=== PATIENT | female | born 1955 | race Caucasian/White ===

== ENCOUNTER → 2016-12-12 | Outpatient (CLI) | payer OTHER | LOC: FIMAGING 13:37 | PROVIDERS: ATTEND Surgery | DX: Z12.31 Encounter for screening mammogram for malignant neoplasm of breast (principal) | CPT/HCPCS: G0202 ==

== ENCOUNTER → 2017-02-03 | Outpatient (CLI) | payer OTHER | LOC: FIMAGING 13:47 | PROVIDERS: ATTEND Nurse Practitioner Women's Health | DX: Z13.820 Encounter for screening for osteoporosis (principal); Z82.62 Family history of osteoporosis ==

== ENCOUNTER 2017-02-22 05:41 | Observation (INO) | payer OTHER ==
[2017-02-22] MEDS ORDERED: PHENAZOPYRIDINE HCL 200 MG TAB PO ONE (05:50)
[2017-02-22] MEDS ORDERED: ceFAZolin 2 GM/DEXTROSE 100 ML IV ONE (05:50)
[2017-02-22] MEDS ORDERED: LIDOCAINE 1% 2 ML INJ ID PRN (05:57)
[2017-02-22] MEDS ORDERED: LR 1,000 ML IV ONE (05:57)
--- NOTE | 2017-02-22 06:19 | PDANEPAE ---
ANE History of Present Illness 61 yo female with bladder, vaginal prolapse. ANE Past Medical History Past Medical History: No URI/fever x2 weeks. - Cardiovascular History Hx Hypertension: No Hx Arrhythmias: No Hx Chest Pain: No Hx Coronary Artery / Peripheral Vascular Disease: No Hx CHF / Valvular Disease: No Hx Palpitations: No Cardiovascular History Comment: low B/P 102/60's, high cholesterol 2015 - Pulmonary History Hx COPD: No Hx Asthma/Reactive Airway Disease: No Hx Recent Upper Respiratory Infection: No Hx Oxygen in Use at Home: No Hx Sleep Apnea: Yes Sleep Apnea Screening Result - Last Documented: Positive Pulmonary History Comment: smoker. [place] w/CPAP - Neurologic History Hx Cerebrovascular Accident: No Hx Seizures: No Hx Dementia: No - Endocrine History Hx Diabetes: No Hypothyroid: No - Renal History Hx Renal Disorders: No - Liver History Hx Hepatic Disorders: No - Neurological & Psychiatric Hx Hx Neurological and Psychiatric Disorders: Yes Neurological / Psychiatric History Comment: "back and hip issues" - Cancer History Hx Cancer: Yes Cancer History Comment: basal cell . Melanoma R leg 2002. - Congenital Disorder History Hx Congenital Disorders: No - GI History GERD: mild Hx Gastrointestinal Disorders: No Gastrointestinal History Comment: occ Pepcid for nausea - Chronic Pain History Chronic Pain: No - Surgical History Prior Surgeries: supracervical hysterectomy-2007. bilat breast bx-2000. hysteroscopy w/D and C. T and A -child ANE Review of Systems Review of Systems: - Exercise capacity METS (RN): 4 METS - Systems Constitutional: Reports: no symptoms Gastrointestinal: Reports: nausea (frequent nausea, none now) Muscolosketal: Reports: back pain (lower back pain) ANE Patient History - Allergies Allergies/Adverse Reactions: erythromycin base Allergy (Verified 02/08/17 15:54) Other-Enter Comments - Home Medications Home medications: home medication list seen and reviewed Home Medications: Calcium Carbonate [Tums 500MG (*)] 500 mg PO HS 02/08/17 [Last Taken 02/08/17] Cholecalciferol Vit D3 [Vitamin D3 (*)] 4,000 units PO DAILY 02/08/17 [Last Taken 02/08/17] Cyanocobalamin (Vitamin B-12) [Vitamin B12] 2,500 mcg PO Q2D 02/08/17 [Last Taken 02/08/17] Estradiol 10 mcg VG MOFR 02/08/17 [Last Taken 02/17/17] Estradiol [Vivelle-Dot 0.05MG (*)] 1 ea TD MOFR 02/08/17 [Last Taken 02/20/17] Herbals/Supplements -Info Only 1 ea PO DAILY 02/08/17 [Last Taken 02/08/17] Polyethylene Glycol 3350 [Miralax 17 gm (*)] 17 gm PO DAILY 02/08/17 [Last Taken 02/19/17] - NPO status NPO Status: no food or drink >8 hours - Anes Hx Anes Hx: no prior problems - Smoking Hx Smoking Status: Heavy smoker - Alcohol Use Alcohol Use: Heavy (14 drinks/week) - Family Anes Hx Family Anes Hx: neg - N/A ANE Labs/Vital Signs - Vital Signs Vital Signs: reviewed preoperatively; see RN documention for details Height: 160.02 cm Weight: 65.771 kg ANE Physical Exam - Airway Neck exam: FROM Mallampati Score: Class 2 Mouth exam: normal dental/mouth exam - Pulmonary Pulmonary: clear to auscultation - Cardiovascular Cardiovascular: regular rate and rhythym - ASA Status ASA Status: II ANE Anesthesia Plan Anesthesia Plan: general endotracheal anesthesia
[2017-02-22] MEDS ORDERED: PROPOFOL/EMULSION 500 MG/50 ML BOTTLE IV ONE ×2 (07:16→07:39)
[2017-02-22] MEDS ORDERED: ROCURONIUM 100 MG/10 ML VIAL ONE (07:16)
[2017-02-22] MEDS ORDERED: LIDOCAINE 2% 5 ML SDV ONE (07:16)
[2017-02-22] MEDS ORDERED: DEXAMETHASONE 4 MG/ML VIAL ONE (07:16)
[2017-02-22] MEDS ORDERED: ONDANSETRON 4 MG/2 ML VIAL ONE (07:16)
[2017-02-22] MEDS ORDERED: BUPIVACAINE/EPI 0.5% 30 ML SDV ONE (07:17)
--- NOTE | 2017-02-22 07:19 | PDHPUP ---
History & Physical Update H&P update statement: This history and physical update is based on an assessment of the patient which was completed after admission or registration (within 24 hours), but prior to the surgery/procedure. H&P update: H&P reviewed & patient examined, no change in patient's condition since H&P completed
[2017-02-22] MEDS ORDERED: SUGAMMADEX SODIUM 200 MG/2 ML VIAL IVP ONE (09:15)
[2017-02-22] MEDS ORDERED: KETOROLAC 30 MG/1 ML SDV ONE (09:17)
[2017-02-22] MEDS ORDERED: OXYCODONE/APAP 5/325 TAB PO PRN (09:18)
[2017-02-22] MEDS ORDERED: PROMETHAZINE HCL 25 MG/ML INJ IVP PRN ×2 (09:18→09:57)
[2017-02-22] MEDS ORDERED: LR 500 ML IV PRN (09:18)
[2017-02-22] MEDS ORDERED: ACETAMINOPHEN 500 MG TAB PO PRN (09:18)
[2017-02-22] MEDS ORDERED: NALOXONE HCL 0.4 MG/ML INJ IVP PRN ×2 (09:18→09:24)
[2017-02-22] MEDS ORDERED: IPRATROPIUM/ALBUTEROL 3 ML DEYVIAL IH PRN (09:24)
[2017-02-22] MEDS ORDERED: HYDROmorphONE/DILAUDID 1 MG/ML INJ IVP PRN (09:57)
[2017-02-22] MEDS ORDERED: DIAZEPAM 10 MG/2 ML SYR IVP PRN (09:57)
[2017-02-22] MEDS ORDERED: ONDANSETRON 4 MG/2 ML VIAL IVP PRN (09:58)
[2017-02-22] MEDS ORDERED: LR 1,000 ML IV SCH (10:00)
--- NOTE | 2017-02-22 10:04 | POSTOPPROG ---
Post Op Note Date of Operation: 02/22/17 Surgeon: Luis Armando Ely Knitting Machine Mechanic: Yojana Hensley Anesthesiologist: Isabela Bauman Anesthesia: GET(General Endotracheal) Pre-op Diagnosis: vaginal prolapse, stress intontinence Post-op Diagnosis: same Procedure: robotic sacrocolpopexy, TOT sling, perineorraphy, cystoq Findings: uerters function at end of case Inf/Abcess present in the surg proc area at time of surgery?: No EBL: Minimal Complications: None
--- NOTE | 2017-02-22 10:06 | POSTANESTH ---
Post Anesthetic Evaluation Cardiovascular Status: Normal, Stable Respiratory Status: Normal, Stable Level of Consciousness/Mental Status: Can Participate in Eval, Moderately Sleepy Pain Control: Adequate, Prn Tx Ordered Nausea/Vomiting Control: Adequate, Prn Tx Ordered Complications Possibly Related to Anesthesia: None Noted
--- NOTE | 2017-02-22 11:09 | GOP ---
[f rep st] OPERATIVE REPORT DATE OF OPERATION: SURGEON: Luis Armando Ely MD EEG TECH: Lorrie Hensley CFA. ANESTHESIA: General. PREOPERATIVE DIAGNOSIS: 1. Cystocele. 2. Rectocele. 3. Vaginal vault prolapse. 4. Stress urinary incontinence. POSTOPERATIVE DIAGNOSIS: 1. Cystocele. 2. Rectocele. 3. Vaginal vault prolapse. 4. Stress urinary incontinence. PROCEDURE PERFORMED: 1. Robotic-assisted laparoscopic sacral colpopexy with mesh. 2. Repair of cystocele and rectocele. 3. Transobturator sling. 4. Perineorrhaphy. 5. Cystoscopy. FINDINGS: SPECIMENS: None. ESTIMATED BLOOD LOSS: Less than 20 mL. DESCRIPTION OF PROCEDURE: The patient was taken to the operating room. She was identified. General anesthesia was administered and found to be adequate. She was placed in the lithotomy position and prepared and draped in normal sterile fashion. A Campos catheter was placed in her bladder. A 1 cm infraumbilical incision was made with a scalpel. The Veress needle with the CO2 gas flowing w as advanced into the peritoneal cavity. The abdomen was then insufflated with carbon dioxide gas. T he 12 mm trocar followed by the laparoscope were then inserted. The upper abdomen was unremarkable. Two lateral ports placed on either side under direct visualization. She then was placed in [place] position, and the da Aspen robot docked on the left side. The instruments were then brought in to the abdominal cavity under direct visualization. The bowel adhesions were taken down to move the small and large bowel into the upper abdomen. The Co lpo-Probe was then placed in the vagina. The bladder was gently dissected off the anterior vaginal w all down to the level of bladder neck. The rectovaginal space was then entered, and the rectum disse cted off the posterior vaginal wall down to the level of the perineal body. Measurements were then o btained, and the mesh trimmed to size. The sigmoid colon was then retracted laterally. The sacral promontory was identified and the overlyi ng peritoneum incised. The fat pad was gently dissected off the anterior longitudinal ligament. The mesh was then brought into the abdominal cavity. Three sutures of 4-0 [place] were used to attach the distal posterior mesh to the perineal body. Two additional rows of [place] sutures were placed posteriorly. Four rows required anteriorly to suture the anterior mesh down to the level of the blad jerry neck and laterally to the paravaginal tissue. The Colpo-Probe was then removed. The sacral arm of the mesh was placed over the promontory, and the tension adjusted. I then scrubbed back into the case to examine the vagina. The tension was further adjusted to resolve the cystocele and rectocele without undue tension on the vagina. Two sutures of 2-0 [place] were used to attach the sacral arm of the mesh to the anterior longitudinal ligament at the level of the upper first sacral vertebral adriana dy below the intervertebral disk space. The excess mesh was then trimmed. The pelvis was irrigated with sterile saline, and hemostasis was present. The peritoneum was then closed over the entire mesh . The robot was then undocked. The fascia was closed with 0 Vicryl, skin with 4-0 Monocryl and surg ical adhesive. Attention was then turned to the sling portion of the procedure. A mid urethral incision was made wi th a scalpel. Tunnels were created bilaterally out to the obturator internus muscles. Skin incision s were made over the obturator notches. The Halo trocar was placed through the left skin incision, r edirected around the ischial pubic rami and out through the vaginal incision using a vaginal finger a s a guide. The lateral sulci were examined and no evidence of vaginal injury had occurred. The slin g was then attached and brought out along the same course. The exact same procedure was performed on the patient's right side. The sling was then adjusted to allow a small mid urethral gap. The vagin al epithelium was closed with 2-0 Vicryl, skin with 4-0 Monocryl. Cystoscopy was then performed. Both ureters had vigorous jets of urine. There was no evidence of bl adder nor urethral injury seen. No mesh nor suture was seen within the bladder nor urethra. No obvi ous pathology was seen. A transverse incision was then made along the perineal body. The posterior vaginal epithelium was un dermined with the Metzenbaum scissors and incised sagittally. The epithelium was then gently dissect ed off the underlying rectovaginal connective tissue. The connective tissue was plicated midline wit h interrupted sutures of 0 Vicryl. The bulbous spongiosis and transverse perineal muscles were then plicated in the midline. The excess epithelium was then trimmed and closed with a running 2-0 Vicryl suture. Vaginal packing was then placed. Anesthesia was reversed, and the patient to PACU awake in stable condition. COMPLICATIONS: None. DISPOSITION: Patient stable to PACU. /[id number]/MODL
[2017-02-22] MEDS: HYDROCODONE/APAP 5/325 TAB PO PRN ×3 (12:50→22:56)
[2017-02-22] MEDS: SIMETHICONE 80 MG TAB CHEW PO SCH ×2 (14:15→22:49)
[2017-02-22] MEDS: ceFAZolin 2 GM/DEXTROSE 100 ML IV SCH ×2 (14:34→22:26)
[2017-02-22] MEDS: KETOROLAC 30 MG/1 ML SDV IVP SCH ×2 (16:42→23:00)
[2017-02-22] MEDS: DOCUSATE SODIUM 100 MG CAP PO SCH (22:49)
[2017-02-23] MEDS: KETOROLAC 30 MG/1 ML SDV IVP SCH ×2 (05:28→10:10)
[2017-02-23 08:01] VITALS: BP 100/53; PULSE 89; RESP 12; TEMP 97.3; O2SAT 94
[2017-02-23] MEDS: HYDROCODONE/APAP 5/325 TAB PO PRN (08:06)
[2017-02-23] MEDS: DOCUSATE SODIUM 100 MG CAP PO SCH (10:12)
[2017-02-23] MEDS: SIMETHICONE 80 MG TAB CHEW PO SCH (10:33)
--- NOTE | 2017-02-25 17:31 | GDS ---
[f rep st] DISCHARGE SUMMARY DISCHARGE DIAGNOSES: 1. Cystocele. 2. Rectocele. 3. Vaginal vault prolapse. 4. Stress urinary incontinence. PROCEDURES: 1. Robotic-assisted laparoscopic sacral colpopexy with mesh. 2. Repair of cystocele and rectocele. 3. Transobturator sling. 4. Perineorrhaphy. 5. Cystoscopy. HISTORY: The patient is a 61-year-old female with symptomatic vaginal prolapse and stress urinary in continence. She was taken to the operating room on 02/22/2017, where she underwent the above-mention ed procedures without complications. Her postoperative course was uneventful. The morning after braulio quita she was ambulating, voiding, and tolerating a general diet. She was discharged home with ibupro fen and Tylenol for pain. She was to follow up in the office 2 weeks after discharge. /[id number]/MODL
== END 2017-02-23 10:25 | disposition home or self-care (01) ==
LOC: F3E 05:41 → FOB 11:31
PROVIDERS: ADMIT Obstetrics & Gynecology; ATTEND Obstetrics & Gynecology
PROC: 0UQG0ZZ Repair Vagina, Open Approach (ICD-10-PCS; principal; 2017-02-22 07:15)
PROC: 8E0WXCZ Robotic Assisted Procedure of Trunk Region (ICD-10-PCS; principal; 2017-02-22 07:15)
PROC: 0JUC0JZ Supplement of Pelvic Region Subcutaneous Tissue and Fascia with Synthetic Substitute, Open Approach (ICD-10-PCS; principal; 2017-02-22 07:15)
PROC: 0TJ98ZZ Inspection of Ureter, Via Natural or Artificial Opening Endoscopic (ICD-10-PCS; principal; 2017-02-22 07:15)
PROC: 0USG4ZZ Reposition Vagina, Percutaneous Endoscopic Approach (ICD-10-PCS; principal; 2017-02-22 07:15)
PROC: 0TUC0JZ Supplement Bladder Neck with Synthetic Substitute, Open Approach (ICD-10-PCS; principal; 2017-02-22 07:15)
PROC: 0DQP0ZZ Repair Rectum, Open Approach (ICD-10-PCS; principal; 2017-02-22 07:15)
DX: N81.3 Complete uterovaginal prolapse (principal); N39.3 Stress incontinence (female) (male); Z90.710 Acquired absence of both cervix and uterus; Z85.820 Personal history of malignant melanoma of skin
CPT/HCPCS: 57250; 57267; 57288; 57425; G0378; C1763; C1771; J0690; J1100; J1885; J2405; J2704

== ENCOUNTER → 2018-01-30 | Outpatient (CLI) | payer OTHER | LOC: FIMAGING 14:55 | PROVIDERS: ATTEND Nurse Practitioner Women's Health | DX: Z12.31 Encounter for screening mammogram for malignant neoplasm of breast (principal); Z80.3 Family history of malignant neoplasm of breast ==